=== PATIENT | female | born 1960 | race Caucasian/White ===

== ENCOUNTER 2017-01-27 11:35 | Emergency (ER) | payer OTHER ==
--- NOTE | 2017-01-27 13:38 | ED ---
Back Pain HPI - General Chief Complaint: Back Pain/Injury Stated Complaint: Back Pain Time Seen by Provider: 01/27/17 13:03 Source: patient, RN notes reviewed, old records reviewed Limitations: no limitations - History of Present Illness Initial Comments: Patient is a 56-year-old female with chief complaint of right-sided back spasm for approximately 2 days. She reports she does arm doing anything to it. She states she's never had any imaging studies were back. She reports that the pain is worse with position. She states that she took a tramadol at 2 in the morning but has not taken any other medications. She reports that she has no peripheral paresthesias. She denies any changes in urination or abdominal pain. She denies any chest pain or shortness of breath. Patient states that pain feels like a muscle spasm only over the right side of the thoracic spine. - Related Data Home Medications Medication Instructions Recorded Confirmed ALPRAZolam [Xanax] 0.5 mg PO HS 04/13/14 02/19/15 Atorvastatin [Lipitor] 80 mg PO HS 04/13/14 02/19/15 Clopidogrel [Plavix] 75 mg PO DAILY 04/13/14 02/19/15 Lisinopril [Zestril] 20 mg PO DAILY 04/13/14 02/19/15 Metoprolol Tartrate [Lopressor] 25 mg PO DAILY 04/13/14 02/19/15 Previous Rx's Medication Instructions Recorded Amoxicillin/Potassium Clav 1 each PO Q12HR #20 tab 02/19/15 [Augmentin 875-125 Tablet] Ofloxacin 0.3% Otic Soln [Floxin 5 drops RIGHT EAR BID #10 ml 02/19/15 Ear Drops] Acetaminophen-Codeine 300-30mg 1 tab PO Q6H PRN #15 tablet 01/27/17 [Tylenol #3] Cyclobenzaprine [Flexeril] 10 mg PO TID #30 tab 01/27/17 Allergies Allergy/AdvReac Type Severity Reaction Status Date / Time No Known Allergies Allergy Verified 01/27/17 11:41 Review of Systems ROS Statement: Those systems with pertinent positive or pertinent negative responses have been documented in the HPI. ROS Other: All systems not noted in ROS Statement are negative. Past Medical History Past Medical History: Coronary Artery Disease (CAD), Hyperlipidemia, Hypertension History of Any Multi-Drug Resistant Organisms: None Reported Past Surgical History: Heart Catheterization With Stent, Hysterectomy, Tubal Ligation Past Psychological History: No Psychological Hx Reported Smoking Status: Former smoker Past Alcohol Use History: None Reported Past Drug Use History: None Reported General Exam - General Exam Comments Initial Comments: Well-appearing 56-year-old female. No acute distress. Limitations: no limitations General appearance: alert, in no apparent distress Head exam: Present: atraumatic, normocephalic, normal inspection Eye exam: Present: normal appearance, PERRL, EOMI. Absent: scleral icterus, conjunctival injection, periorbital swelling ENT exam: Present: normal exam, mucous membranes moist Neck exam: Present: normal inspection. Absent: tenderness, meningismus, lymphadenopathy Respiratory exam: Present: normal lung sounds bilaterally. Absent: respiratory distress, wheezes, rales, rhonchi, stridor Cardiovascular Exam: Present: regular rate, normal rhythm, normal heart sounds. Absent: systolic murmur, diastolic murmur, rubs, gallop, clicks GI/Abdominal exam: Present: soft, normal bowel sounds. Absent: distended, tenderness, guarding, rebound, rigid Extremities exam: Present: normal inspection, full ROM, normal capillary refill. Absent: tenderness, pedal edema, joint swelling, calf tenderness Back exam: Present: normal inspection, full ROM, tenderness (Right thoracic spinal tenderness), muscle spasm, paraspinal tenderness (Right thoracic). Absent: vertebral tenderness, rash noted, other Neurological exam: Present: alert, oriented X3, CN II-XII intact Psychiatric exam: Present: normal affect, normal mood Skin exam: Present: warm, dry, intact, normal color Course Vital Signs 01/27/17 01/27/17 11:37 13:59 Temperature 98 F 97.9 F Pulse Rate 53 L 55 L Respiratory 17 18 Rate Blood Pressure 169/81 158/65 O2 Sat by Pulse 95 99 Oximetry Medical Decision Making - Medical Decision Making atfrancine is a 56-year-old female with chief complaint of right-sided back spasm for approximately 2 days. She reports she does arm doing anything to it. She states she's never had any imaging studies were back. She reports that the pain is worse with position. She states that she took a tramadol at 2 in the morning but has not taken any other medications. Patient has evidence of a spasm and tenderness over right thoracic paraspinal muscles. Patient given IM norflex and toradol. PAtient gven Rx for norflex and tylenol 3, I did discuss return parameters and treatment plan. Thoracic spine Xray does show spurring, no spondylolisthesis or spondlylolysis. Patient understands treatment plan and will comply. - Radiology Data Radiology results: report reviewed No fractures present. Multilevel spurring is evident. Disposition Clinical Impression: Spasm of thoracic back muscle Disposition: HOME SELF-CARE Condition: Good Instructions: Muscle Spasm (ED) Additional Instructions: Is advised to continue applying heating pad over the area. Follow-up with primary care provider if symptoms continue persist. Return to emergency department if any alarming signs or symptoms occur. Prescriptions: Acetaminophen-Codeine 300-30mg [Tylenol #3] 1 tab PO Q6H PRN #15 tablet PRN Reason: Pain Cyclobenzaprine [Flexeril] 10 mg PO TID #30 tab Referrals: Andrea Miller DO [Primary Care Provider] - 1-2 days Time of Disposition: 14:03
[2017-01-27] MEDS: KETOROLAC 60 MG/2 ML VIAL IM STA (13:47)
[2017-01-27] MEDS: ORPHENADRINE 30 MG/ML 2 ML VIAL IM STA (13:47)
[2017-01-27 14:00] VITALS: BP 158/65; PULSE 55; RESP 18; TEMP 97.9
--- NOTE | 2017-01-27 14:00 | XR ---
EXAMINATION TYPE: XR thoracic spine 2V DATE OF EXAM: 01/27/2017 1:39 PM CLINICAL HISTORY: Right-sided back pain. TECHNIQUE: Frontal, lateral, and swimmer's view of thoracic spine are obtained. COMPARISON: None. FINDINGS: Thoracic spine show satisfactory alignment without evidence of acute fracture or dislocatio n. Vertebral body heights and disc space heights are preserved. Mild multilevel anterior spurring is present. Visualized ribs are unremarkable. IMPRESSION: No acute fracture or dislocation is seen in the thoracic spine. Mild multilevel spurring noted.
== END 2017-01-27 14:14 | disposition home or self-care (01) ==
LOC: EC 11:35
DX: M62.830 Muscle spasm of back (principal); I25.10 Atherosclerotic heart disease of native coronary artery without angina pectoris; E78.5 Hyperlipidemia, unspecified; I10 Essential (primary) hypertension; Z87.891 Personal history of nicotine dependence; Z79.01 Long term (current) use of anticoagulants; Z79.899 Other long term (current) drug therapy
CPT/HCPCS: 72070; 99284; 96372 ×2; J2360; J1885

== ENCOUNTER → 2017-05-10 | Outpatient (CLI) | payer OTHER ==
--- NOTE | 2017-05-10 14:39 | US ---
EXAMINATION TYPE: US st tissue head/neck DATE OF EXAM: 05/10/2017 COMPARISON: NONE CLINICAL HISTORY: R22.1 Localized swelling, mass and lump, neck. Right shoulder/neck prominence noted x 2 years. US: area surveyed at right shoulder/ lateral neck showed no discreet mass and as compared to left tex ulder/lateral neck area. IMPRESSION: No distinct mass identified at the site of clinical concern.
== END | disposition home or self-care (01) ==
LOC: RADUSWWP 13:34
PROVIDERS: ATTEND Family Medicine
DX: R22.1 Localized swelling, mass and lump, neck (principal)
CPT/HCPCS: 76536

== ENCOUNTER 2017-08-02 08:28 | Day surgery (SDC) | payer OTHER ==
[2017-07-30 12:06] VITALS: BMI 29.2
[~2017-08-02 08:28] MED LIST: LACTATED RINGERS 1,000 ML IV SCH
[2017-08-02 08:46] VITALS: RESP 18; TEMP 98.1
[2017-08-02 08:48] LABS: Glucose,Whole Blood 95 mg/dL (75-99)
[2017-08-02] MEDS ORDERED: LIDOCAINE 1% 20 ML VIAL (10MG/ML) FOR IV START INTRADERMA ONE (08:51)
[2017-08-02] MEDS ORDERED: MIDAZOLAM 2 MG/2 ML VIAL IV ONE (08:52)
[2017-08-02] MEDS ORDERED: LIDOCAINE 1% INJ 10MG/ML (20 ML MDV) ONE (09:12)
[2017-08-02] MEDS ORDERED: PROPOFOL 10 MG/ML 20 ML VIAL IV ONE (09:12)
--- NOTE | 2017-08-02 09:13 | P.GSHP ---
History of Present Illness H&P Date: 08/02/17 Chief Complaint: GI bleed This a 56-year-old female referred from Dr. Andrea Pike. Patient's had issues with rectal bleeding. She presents today for colonoscopy. Past Medical History Past Medical History: Coronary Artery Disease (CAD), Hyperlipidemia, Hypertension, Myocardial Infarction (ID) Additional Past Medical History / Comment(s): incontinent of stools at times, waxy stools, ulcerative colitis, intermittent pain in between shoulder blades, hypoglycemia Last Myocardial Infarction Date:: 2011 History of Any Multi-Drug Resistant Organisms: None Reported Past Surgical History: Heart Catheterization With Stent, Hysterectomy, Tubal Ligation Additional Past Surgical History / Comment(s): heart stent x1 Past Anesthesia/Blood Transfusion Reactions: Previous Problems w/ Anesthesia Additional Past Anesthesia/Blood Transfusion Reaction / Comment(s): states "Dr had a difficult time advancing scope with prior colonoscopy,takes a long time to wake up from anesthesia",pt's mom takes a long time to wake up from anesthesia,no hx blood transfusion Date of Last Stent Placement:: 2011 Past Psychological History: No Psychological Hx Reported Smoking Status: Former smoker Past Alcohol Use History: Occasional Additional Past Alcohol Use History / Comment(s): quit smoking March 2017,smoked for 30 yrs 1ppd Past Drug Use History: None Reported - Past Family History Mother Family Medical History: No Reported History Father Family Medical History: Congestive Heart Failure (CHF) Additional Family Medical History / Comment(s): emphysema Medications and Allergies Home Medications Medication Instructions Recorded Confirmed Type ALPRAZolam [Xanax] 1 mg PO HS 04/13/14 07/30/17 History Atorvastatin [Lipitor] 80 mg PO HS 04/13/14 07/30/17 History Clopidogrel [Plavix] 75 mg PO DAILY 04/13/14 07/30/17 History Lisinopril [Zestril] 40 mg PO QAM 04/13/14 07/30/17 History Metoprolol Tartrate [Lopressor] 25 mg PO BID 04/13/14 07/30/17 History Aspirin EC [Ecotrin Low Dose] 81 mg PO DAILY 07/30/17 07/30/17 History Allergies Allergy/AdvReac Type Severity Reaction Status Date / Time No Known Allergies Allergy Verified 07/30/17 11:50 Surgical - Exam Vital Signs Temp Pulse Resp BP Pulse Ox 98.1 F 64 18 120/80 95 08/02/17 08:45 08/02/17 08:45 08/02/17 08:45 08/02/17 08:45 08/02/17 08:45 - General well developed, well nourished, no distress - Eyes PERRL - ENT normal pinna - Neck no masses - Respiratory normal expansion - Cardiovascular Rhythm: regular - Abdomen Abdomen: soft, non tender Assessment and Plan Plan: GI bleed. We'll perform colonoscopy.
--- NOTE | 2017-08-02 09:28 | P.OP ---
Date of Procedure: 08/02/17 Preoperative Diagnosis: GI bleed Postoperative Diagnosis: Diverticulosis Procedure(s) Performed: Colonoscopy Anesthesia: MAC Surgeon: Abdi Brown Pathology: none sent Condition: stable Disposition: PACU Description of Procedure: The patient's placed on the endoscopy table in the lateral position. She received IV sedation. Digital rectal exam was performed which revealed a few external hemorrhoids. The flexible colonoscope was then placed patient anus passed throughout the entire colon. The ileocecal valve was visualized. Cecum , ascending and transverse colon appeared normal. In the descending and; was mild diverticular changes. Scope was then brought back the rectum and this appeared normal. The scope was withdrawn for patient.
[2017-08-02 09:47] VITALS: BP 111/61; PULSE 64
== END 2017-08-02 10:19 | disposition home or self-care (01) ==
LOC: ORWHC2ENDO 08:28
PROVIDERS: ATTEND Surgery
DX: K62.5 Hemorrhage of anus and rectum (principal); K57.30 Diverticulosis of large intestine without perforation or abscess without bleeding; K64.4 Residual hemorrhoidal skin tags; R15.9 Full incontinence of feces; K51.90 Ulcerative colitis, unspecified, without complications; I25.10 Atherosclerotic heart disease of native coronary artery without angina pectoris; I10 Essential (primary) hypertension; E78.5 Hyperlipidemia, unspecified; I25.2 Old myocardial infarction; Z95.5 Presence of coronary angioplasty implant and graft; Z79.02 Long term (current) use of antithrombotics/antiplatelets; Z79.82 Long term (current) use of aspirin; Z79.899 Other long term (current) drug therapy; Z87.891 Personal history of nicotine dependence; E16.2 Hypoglycemia, unspecified
CPT/HCPCS: 45378; J2250; J2001; J2704

== ENCOUNTER 2017-10-06 07:47 | Day surgery (SDC) | payer OTHER ==
[2017-10-04 08:29] VITALS: BMI 29.2
--- NOTE | 2017-10-05 11:25 | HP ---
HISTORY AND PHYSICAL DATE OF SERVICE: 10/06/2017 Theresa Kimble is a 56-year-old patient seen with progressive left shoulder pain. We discussed treatment options. She elected to proceed with left shoulder arthroscopy. Consent was obtained. Medical clearance was provided by Dr. Andrea Miller. PAST MEDICAL HISTORY: Hypertension, hyperlipidemia, depression. PAST SURGICAL HISTORY: Noncontributory daily. MEDICATIONS: 1. Alprazolam. 2. Atorvastatin. 3. Lisinopril. 4. Metoprolol. ALLERGIES: NORCO. SOCIAL HISTORY: Patient denies current tobacco use. PHYSICAL EXAMINATION: Evaluation left shoulder flexion 30 degrees, abduction is 30 degrees, external rotation is 30 degrees with pain and weakness, tenderness along the anterior lateral acromion and rotator cuff insertion site. Impingement sign is positive at 50 degrees. Drop-arm sign is positive. Distal neurovascular exam is intact. Left shoulder radiographs revealed a type [address] arthrogram of the left shoulder revealed rotator cuff tear and labral tear. IMPRESSION: Left shoulder rotator cuff tear and labral tear. PLAN: Left shoulder arthroscopy, subacromial decompression, probable arthroscopic rotator cuff repair, possible arthroscopic labral repair and debridement. MMODL / IJN: [id number] /
[~2017-10-06 07:47] MED LIST changes: +DEXAMETHASONE SOD PHOSPHATE 10 MG/ML 1 ML VIAL IV ONE; +MIDAZOLAM 2 MG/2 ML VIAL IV PRN; +ONDANSETRON 4 MG/2 ML VIAL IVP ONE; +SCOPOLAMINE 1.5MG/72HR PATCH TRANSDERM ONE; +ceFAZolin IN SWFI 2 GM/20 ML SYRINGE IVP ONE; +fentaNYL (PF) 50 MCG/ML 2 ML AMP IV PRN
[2017-10-06] MEDS ORDERED: LIDOCAINE 1% 20 ML VIAL (10MG/ML) FOR IV START INTRADERMA ONE (08:29)
[2017-10-06] MEDS ORDERED: MIDAZOLAM 2 MG/2 ML VIAL IVP ONE (08:34)
--- NOTE | 2017-10-06 08:56 | P.ONQ ---
Anesthesiology Proc Note - PNB - Peripheral Nerve Block Performed Left Interscalene Indication: Acute Post-Operative Pain, Requested by physician (Dr martins) Sedation Type: Sedate with meaningful contact maintained Preparation: Sterile Prep Position: Supine Catheter: None Needle Types: Other (see comment) (Raquel) Needle Size: 50mm (2") Needle Gauge: 20 Technique: Ultrasound Injectate: 0.5% Ropivacaine (see comment for volume) (14cc Ropivacaine 0.5%, 14cc Lidocaine 2% with 1:100,00 epi) Blood Aspirated: No Pain Paresthesia on Injection Noted: No Resistance on Injection: Normal Events: Uneventful and Well Tolerated
[2017-10-06] MEDS ORDERED: ROPIVACAINE 5 MG/ML 30 ML VIAL ONE (09:52)
[2017-10-06] MEDS ORDERED: ePHEDrine SULFATE/0.9% NACL/PF 50 MG/5 ML SYRINGE IV ONE (09:52)
[2017-10-06] MEDS ORDERED: PROPOFOL 10 MG/ML 20 ML VIAL IV ONE (09:52)
[2017-10-06] MEDS ORDERED: LIDOCAINE 1% INJ 10MG/ML (20 ML MDV) ONE (09:52)
[2017-10-06] MEDS ORDERED: SUCCINYLCHOLINE CHLORIDE 100 MG/5 ML SYR IV ONE (09:52)
[2017-10-06] MEDS ORDERED: MIDAZOLAM 2 MG/2 ML VIAL ONE (09:52)
[2017-10-06] MEDS ORDERED: LIDOCAINE 2%-EPI 1:100,000 20 ML VIAL ONE (09:52)
[2017-10-06] MEDS ORDERED: fentaNYL (PF) 50 MCG/ML 2 ML AMP ONE (09:52)
[2017-10-06] MEDS ORDERED: LACTATED RINGERS 1,000 ML IV ONE (10:50)
--- NOTE | 2017-10-06 11:43 | P.OP ---
Date of Procedure: 10/06/17 Preoperative Diagnosis: Left shoulder impingement Postoperative Diagnosis: 1. Left shoulder rotator cuff tear 2. Left shoulder impingement 3. Left shoulder partial biceps tendon tear 4. Left shoulder superficial labral tear Procedure(s) Performed: 1. Left shoulder arthroscopic rotator cuff repair 2. Left shoulder arthroscopic subacromial decompression 3. Left shoulder arthroscopic biceps tenotomy 4. Left shoulder arthroscopic debridement labral tear Implants: 2-4.5 peek anchors 2-5.5 peek anchors Anesthesia: GETA, regional (Interscalene block) Surgeon: Jim Mcleod Spinning Lathe Operator Automatic #1: Hitesh Fernandes Estimated Blood Loss (ml): 15 Pathology: none sent Condition: stable Disposition: PACU Indications for Procedure: 56-year-old patient seen with left shoulder pain. After we discussed treatment options, she elected to proceed with arthroscopy. Operative Findings: See description of procedure Description of Procedure: Patient underwent a shoulder block by department of anesthesia. The patient was then taken to the operative suite. The patient underwent a general anesthetic by the department of anesthesia. The patient was placed into a lateral position and secured. There was appropriate padding of the bony prominence. Left shoulder was then prepped and draped in normal sterile orthopedic fashion. We placed the extremity in 10 pounds of longitudinal traction. A posterior incision was now made for a posterior working portal site. The trocar and cannula were inserted into the glenohumeral joint. Arthroscopy was initiated. Spinal needle was now inserted anteriorly, to ascertain the anterior working portal site. An incision was now made in that area, a trocar was inserted followed by a probe. Partial long head biceps tendon tear was present at the hiatus. There was some superficial tearing of the superior labrum. There were grade 1/2 chondral moist changes of the central portion of the glenoid with no osteochondral tears. The remaining labrum was stable. I performed an arthroscopic biceps tenotomy. I debrided the superficial labral tear down to stable tissue. The residual labrum was stable. Instruments removed from glenohumeral joint. Utilizing the posterior working portal site, the trocar and cannula were inserted into the subacromial space. Arthroscopy initiated. I made an incision 2 fingerbreadths lateral to the acromion. I introduced my trocar followed by my ArthroCare ablator. I now began ablating thick subacromial bursal tissue, which exposed the undersurface of the anterior acromion. This was diminished subacromial space. There was a very prominent anterior acromion. A motorized bur was introduced and a subacromial decompression was performed. I also excised some osteophytes off the inferior aspect of the distal clavicle. The AC joint was visualized and noted to be moderately arthritic, not enough toward a Gilbert procedure. I turned my attention to the rotator cuff. There was a 2.5 cm tear along the distal supraspinatus. This was freely mobile over the footprint. I debrided the margins down to stable tissue. I abraded the footprint with a motorized bur. An acetylene burner portal site was created off the lateral aspect of the acromion. I introduced 2 medial row anchors with 2 sutures each. I passed all 8 limbs of suture through good bites of rotator cuff tendon. I crisscrossed the sutures and introduced 2 lateral anchors compressing the tendon along the footprint nicely. The residual suture limbs were clipped. The repair was probed and found to be stable. Instruments now removed from the portal sites. All portal sites were approximated with nylon suture. Sterile dressings were applied followed by a shoulder immobilizer. Yann ROSARIO assisted with the procedure. The patient was awakened, transferred to a bed, and taken to recovery in stable condition.
[2017-10-06 11:53] VITALS: TEMP 97
[2017-10-06] MEDS ORDERED: ONDANSETRON 4 MG/2 ML VIAL IVP ONE (12:15)
[2017-10-06] MEDS ORDERED: LABETALOL SYRINGE 5 MG/ML IVP ONE (12:21)
[2017-10-06 12:23] VITALS: RESP 16
[2017-10-06] MEDS ORDERED: Acetaminophen-Codeine 300-30mg TAB PO ONE (12:48)
[2017-10-06 13:15] VITALS: BP 143/74; PULSE 82
== END 2017-10-06 13:50 | disposition home or self-care (01) ==
LOC: OR 07:47
PROVIDERS: ATTEND Orthopaedic Surgery
DX: M75.102 Unspecified rotator cuff tear or rupture of left shoulder, not specified as traumatic (principal); S46.112A Strain of muscle, fascia and tendon of long head of biceps, left arm, initial encounter; S43.492A Other sprain of left shoulder joint, initial encounter; X58.XXXA Exposure to other specified factors, initial encounter; M25.712 Osteophyte, left shoulder; M75.42 Impingement syndrome of left shoulder; I10 Essential (primary) hypertension; F41.9 Anxiety disorder, unspecified; I25.10 Atherosclerotic heart disease of native coronary artery without angina pectoris; D64.9 Anemia, unspecified; E78.5 Hyperlipidemia, unspecified; F32.9 Major depressive disorder, single episode, unspecified; I25.2 Old myocardial infarction; Z79.899 Other long term (current) drug therapy; Z79.891 Long term (current) use of opiate analgesic; Z79.82 Long term (current) use of aspirin; Z79.02 Long term (current) use of antithrombotics/antiplatelets; Z98.51 Tubal ligation status; Z88.5 Allergy status to narcotic agent
CPT/HCPCS: 29827; 29826; J2250; J1100; J0690; J2405; 64415

== ENCOUNTER → 2020-10-15 | Outpatient (CLI) | payer OTHER ==
--- NOTE | 2020-10-15 10:05 | MR ---
MR brain without contrast HISTORY: H 53.6, blurred vision and ataxia, recurrent falls Multiplanar multisequence imaging through the brain Comparison cervical MRI 02/11/2016 There is no restricted diffusion. There is no hemorrhage or hydrocephalus. There are normal vascular flow voids. There is abnormal increased signal on T1 and T2-weighted sequences at the petrous apex on the right. Cerebellopontine angles, corpus callosum, pituitary, cervical medullary junction are norm al. Clivus shows a stable appearance. There is no hemorrhage or hydrocephalus. Orbits show symmetric appearance. Brain signal is remarkable for some scattered hyperintensities on inversion recovery T2-w eighted sequences, approximately 3-5 lesions, axial image 20 within the deep white matter of question able clinical significance. There is some atrophy noted the anterior aspect of the right frontal lobe inferiorly. IMPRESSION: Petrous apex shows abnormal signal, consider cholesterol granuloma. Nonspecific white mat ter abnormalities of questionable clinical significance. Some focal encephalomalacia of the right fro ntal lobe inferiorly, correlate for prior history of trauma, frontal contusion.
== END | disposition home or self-care (01) ==
LOC: RADMRIMAIN 08:43
PROVIDERS: ATTEND Psychiatry & Neurology Neurology
DX: G93.89 Other specified disorders of brain (principal); R90.82 White matter disease, unspecified; R93.0 Abnormal findings on diagnostic imaging of skull and head, not elsewhere classified; R27.0 Ataxia, unspecified; R29.6 Repeated falls
CPT/HCPCS: 70551

== ENCOUNTER → 2020-10-21 | Outpatient (CLI) | payer OTHER ==
--- NOTE | 2020-10-21 14:03 | US ---
EXAMINATION TYPE: US carotid duplex BILAT DATE OF EXAM: 10/21/2020 COMPARISON: NONE CLINICAL HISTORY: H53.8 Blurred vision bilateral...... Blurred vision, double vision EXAM MEASUREMENTS: RIGHT: Peak Systolic Velocity (PSV) cm/sec ----- Right CCA: 87.7 ----- Right ICA: 77.7 ----- Right ECA: 62.1 ICA/CCA ratio: 0.9 RIGHT: End Diastole cm/sec ----- Right CCA: 30.3 ----- Right ICA: 34.9 ----- Right ECA: 14.3 LEFT: Peak Systolic Velocity (PSV) cm/sec ----- Left CCA: 76.6 ----- Left ICA: 81.5 ----- Left ECA: 47.9 ICA/CCA ratio: 1.1 LEFT: End Diastole cm/sec ----- Left CCA: 26.4 ----- Left ICA: 34.8 ----- Left ECA: 12.1 VERTEBRALS (direction of flow): Right Vertebral: Antegrade Left Vertebral: Antegrade Rhythm: Normal No significant stenosis mild atherosclerotic plaque. IMPRESSION: 1. No significant hemodynamic stenosis as visualized. Criteria for Assigning % of Stenosis / Diameter reduction (Estimation based on the indirect measurements of the internal carotid artery velocities (ICA PSV). 1. Normal (no stenosis)=ICA PSV < 125 cm/s: ratio < 2.0: ICA EDV<40 cm/s. 2. Less than 50% stenosis=ICA PSV < 125 cm/s: ratio < 2.0: ICA EDV<40 cm/s. 3. 50 to 69% stenosis=ICA PSV of 125 to 230 cm/s: ration 2.0 ? 4.0: ICA EDV 40-100 cm/s. 4. Greater than 70% stenosis to near occlusion= ICA PSV > 230 cm/s: ratio > 4.0: ICA EDV > 100 cm/s. 5. Near occlusion= ICA PSV velocities may be low or undetectable: variable ratio and ICA EDV. 6. Total occlusion=unable to detect flow.
--- NOTE | 2020-10-22 13:40 | ECHOF ---
Referral Reason:H53.8 Blurred vision bilateral..... MEASUREMENTS -------- HEIGHT: 162.6 cm WEIGHT: 59.0 kg BP: RVIDd: 3.2 cm (< 3.3) IVSd: 0.8 cm (0.6 - 1.1) LVIDd: 4.2 cm (3.9 - 5.3) LVPWd: 1.0 cm (0.6 - 1.1) IVSs: 1.3 cm LVIDs: 3.5 cm LVPWs: 1.0 cm LA Diam: 3.4 cm (2.7 - 3.8) LAESV Index (A-L): 23.18 ml/m Ao Diam: 2.6 cm (2.0 - 3.7) AV Cusp: 1.7 cm (1.5 - 2.6) MV EXCURSION: 16.659 mm (> 18.000) MV EF SLOPE: 138 mm/s (70 - 150) EPSS: 0.6 cm MV E Ramo: 0.55 m/s MV DecT: 147 ms MV A Ramo: 0.72 m/s MV E/A Ratio: 0.77 RAP: 5.00 mmHg RVSP: 16.70 mmHg FINDINGS -------- Sinus rhythm. This was a technically good study. LV size, wall thickness and systolic function are normal, with an EF greater than 55%. The left rosario tricular size is normal. The right ventricle is normal in size. The left atrial size is normal. The right atrial size is normal. The aortic valve is trileaflet, and appears structurally normal. No aortic stenosis or regurgitation. Mild mitral regurgitation is present. Mild tricuspid regurgitation present. Right ventricular systolic pressure is normal at < 35 mmHg. There is no pulmonic regurgitation present. The aortic root size is normal. There is no pericardial effusion. CONCLUSIONS -------- 1. LV size, wall thickness and systolic function are normal, with an EF greater than 55%. 2. The left ventricular size is normal. 3. The right ventricle is normal in size. 4. The left atrial size is normal. 5. The right atrial size is normal. 6. Mild mitral regurgitation is present. 7. Mild tricuspid regurgitation present. 8. There is no pulmonic regurgitation present. 9. The aortic root size is normal. 10. There is no pericardial effusion. ROLLER COASTER ENGINEER: Hillary Douglas RDCS
== END | disposition home or self-care (01) ==
LOC: RADECHMAIN 12:06
PROVIDERS: ATTEND Psychiatry & Neurology Neurology
DX: I08.1 Rheumatic disorders of both mitral and tricuspid valves (principal); H53.8 Other visual disturbances; R27.0 Ataxia, unspecified
CPT/HCPCS: 93306; 93880

== ENCOUNTER → 2020-11-18 | Outpatient (CLI) | payer OTHER ==
--- NOTE | 2020-11-18 10:05 | MR ---
EXAMINATION TYPE: MR lumbar spine wo con DATE OF EXAM: 11/18/2020 COMPARISON: NONE HISTORY: Back pain, left side weakness TECHNIQUE: T1 and T2 axial and sagittal images of the lumbar spine are submitted. FINDINGS: There is no abnormal signal seen within the visualized spinal cord or paraspinal soft tissu es. There is loss of disc signal and space at all levels with severe changes extending L1-S1. Multile magda discogenic marrow changes are seen. Heterogeneous marrow signal is nonspecific. On the sagittal images there is a sagittal disc bulge T11-T12 which is not included the axial images. T12-L1 there is a right-sided nerve root sleeve diverticulum. No disc herniation or canal stenosis. M ild hypertrophic change of the facets. At L1-2 there is broad-based central disc herniation with moderate effacement of thecal sac and centr al stenosis. Hypertrophic change of the facets and ligamentum flavum contribute. There is mild bilate ral foraminal encroachment. At L2-3 there is severe degenerative disc disease with broad-based disc bulging. Hypertrophic change of the facets and ligamentum flavum contribute to borderline to mild canal stenosis and mild bilatera l foraminal encroachment. At L3-4 there is severe degenerative disc disease with disc bulging and broad-based. Hypertrophic compa nge of the facets and ligamentum flavum contribute to mild canal stenosis and bilateral foraminal enc roachment greater on the right. A greater right lateral disc bulging is seen. At L4-5 there is a slight anterolisthesis likely degenerative with advanced facet arthropathy. Hypert rophy ligamentum flavum and central disc bulging contribute to mild to moderate canal stenosis and mi ld bilateral foraminal encroachment. At L5-S1 there is severe degenerative disc disease with advanced facet arthropathy. Spurring and disc bulging greater laterally to left with moderate left foraminal encroachment. Right neural foramina i s patent. IMPRESSION: 1. Severe degenerative disc disease at all levels with multilevel disc bulging as discussed above res ulting in multilevel canal stenosis and foraminal encroachment. 2. Sagittal disc bulging T11-T12 which is not included on the axial images of the lumbar spine
== END | disposition home or self-care (01) ==
LOC: RADMRIMAIN 08:53
PROVIDERS: ATTEND Psychiatry & Neurology Neurology
DX: M48.061 Spinal stenosis, lumbar region without neurogenic claudication (principal); M51.26 Other intervertebral disc displacement, lumbar region; M51.27 Other intervertebral disc displacement, lumbosacral region; M51.36 Other intervertebral disc degeneration, lumbar region; M51.37 Other intervertebral disc degeneration, lumbosacral region
CPT/HCPCS: 72148

== ENCOUNTER → 2021-04-15 | Outpatient (CLI) | payer OTHER ==
[2021-04-15 21:39] LABS: HGB 12.1 g/dL (12.0-15.0); MCHC 31.8 g/dL (32.0-37.0); MCV 94.3 fL (80.0-97.0); Mean Platelet Volume 11.9 fL (9.5-12.2); Platelet Count 221 X 10*3/uL (140-440); RBC 4.03 X 10*6/uL (4.10-5.20); RDW 13.4 % (11.5-14.5); WBC 7.43 X 10*3/uL (4.50-10.00)
[2021-04-15 22:13] LABS: African American GFR (CKD) 70.4 (60.0-200.0); Albumin 4.4 g/dL (3.80-4.90); Albumin/Globulin Ratio 2.1 (1.60-3.17); Anion Gap 9.6 mmol/L (4.00-12.00); Calcium 9.4 mg/dL (8.7-10.3); Carbon Dioxide 26.4 mmol/L (21.6-31.8); Globulin 2.1 g/dL (1.6-3.3); Non-African American GFR(CKD) 60.8 (60.0-200.0); Potassium 4.2 mmol/L (3.5-5.5); Total Bilirubin 0.2 mg/dL (0.3-1.2); Total Protein 6.5 g/dL (6.2-8.2)
[2021-04-15 22:29] LABS: Folate, Serum 10.9 ng/mL; T4, Free (Free Thyroxine) 0.8 ng/dL (0.80-1.80)
== END | disposition home or self-care (01) ==
LOC: LABWHC1 14:17
PROVIDERS: ATTEND Psychiatry & Neurology Pain Medicine
DX: R41.3 Other amnesia (principal)
CPT/HCPCS: 36415; 80053; 82306; 82607; 82746; 83090; 84439; 84443; 84481; 85027

== ENCOUNTER → 2022-04-15 | Outpatient (CLI) | payer OTHER ==
--- NOTE | 2022-04-16 08:27 | MM ---
Reason for Exam: Screening (asymptomatic). Last mammogram was performed 10 year(s) and 4 month(s) ago. Patient History: Menarche at age 12. First Full-Term at age 23. Left ovary removed at age 43. Right ovary removed at age 43. Hysterectomy at age 43. Postmenopausal. Estrogen for 3 years, 7 months, from age 44 until age 47. 2003, Benign Excisional Biopsy on the right side. Paternal cousin had breast cancer, age 30. Paternal cousin had breast cancer. Risk Values: Jasmyne 5 year model risk: 1.6%. NCI Lifetime model risk: 7.3%. Prior Study Comparison: 12/06/2007 Bilateral Screening Mammogram, [facility]. 12/15/2007 Left Diagnostic Mammogram, [facility]. 12/21/2011 Bilateral Screening Mammogram, [facility]. Tissue Density: There are scattered fibroglandular densities. Findings: Analyzed By CAD. Stable chronic nodularity upper outer aspect left breast. Increased fatty replacement since prior study. Benign-appearing bilateral axillary lymph nodes current study. A few regional benign appearing round calcifications in the anterior aspect both breasts. There is no suspicious group of microcalcifications or new suspicious mass in either breast. Overall Assessment: Benign, BI-RAD 2 Management: Screening Mammogram of both breasts in 1 year. A clinical breast exam by your physician is recommended on an annual basis and results should be correlated with mammographic findings. Electronically signed and approved by: Alon Wilcox M.D.
== END | disposition home or self-care (01) ==
LOC: RADMAMWWP 10:26
PROVIDERS: ATTEND Internal Medicine
DX: Z12.31 Encounter for screening mammogram for malignant neoplasm of breast (principal); Z78.0 Asymptomatic menopausal state; Z80.3 Family history of malignant neoplasm of breast; Z90.721 Acquired absence of ovaries, unilateral
CPT/HCPCS: 77063; 77067

== ENCOUNTER 2023-11-19 07:49 | Observation (INO) | payer MEDICARE, OTHER ==
--- NOTE | 2023-11-19 07:53 | ED ---
General Adult HPI - General Stated complaint: Chest Pain Time Seen by Provider: 11/19/23 07:50 Source: patient, EMS, RN notes reviewed, old records reviewed - History of Present Illness Initial comments: 63 female presents for evaluation of chest pain. Patient's symptoms began in the middle the night several hours prior to arrival with central chest pain. She did state that she had pain in the middle of her back as well. She has history of CAD, history of hypertension. Patient reports associated vomiting. Her symptoms are improved at the time my evaluation. She was transported by paramedics, given an aspirin in route. - Related Data Home Medications Medication Instructions Recorded Confirmed Clopidogrel [Plavix] 75 mg PO DAILY 04/13/14 11/19/23 Metoprolol Tartrate [Lopressor] 25 mg PO TID 04/13/14 11/19/23 ALPRAZolam [Xanax] 1 mg PO BID 11/19/23 11/19/23 Cyclobenzaprine [Flexeril] 5 mg PO BID 11/19/23 11/19/23 Fluticasone Propionate 1 spray EA NOSTRIL DAILY 11/19/23 11/19/23 Rosuvastatin Calcium 5 mg PO DAILY 11/19/23 11/19/23 Ubrogepant [Ubrelvy] 100 mg PO BID PRN 11/19/23 11/19/23 amLODIPine [Norvasc] 5 mg PO DAILY 11/19/23 11/19/23 lisinopriL [Zestril] 10 mg PO DAILY 11/19/23 11/19/23 Allergies Allergy/AdvReac Type Severity Reaction Status Date / Time hydrocodone [From Lucas] AdvReac Severe Nausea & Verified 11/19/23 10:44 Vomiting Review of Systems ROS Statement: Those systems with pertinent positive or pertinent negative responses have been documented in the HPI. ROS Other: All systems not noted in ROS Statement are negative. Past Medical History Past Medical History: Coronary Artery Disease (CAD), Hyperlipidemia, Hypertension, Myocardial Infarction ([place]) Additional Past Medical History / Comment(s): incontinent of stools at times,waxy stools, ulcerative colitis, intermittent pain in between shoulder blades,hypoglycemia Last Myocardial Infarction Date:: 2011 History of Any Multi-Drug Resistant Organisms: None Reported Past Surgical History: Heart Catheterization With Stent, Hysterectomy, Tubal Ligation Additional Past Surgical History / Comment(s): heart stent x1 Past Anesthesia/Blood Transfusion Reactions: Previous Problems w/ Anesthesia Additional Past Anesthesia/Blood Transfusion Reaction / Comment(s): states "Dr had a difficult time advancing scope with prior colonoscopy,takes a long time to wake up from anesthesia",pt's mom takes a long time to wake up from anesthesia,no hx blood transfusion Date of Last Stent Placement:: 2011 Past Psychological History: No Psychological Hx Reported - Past Family History Mother Family Medical History: No Reported History Father Family Medical History: Congestive Heart Failure (CHF) Additional Family Medical History / Comment(s): emphysema General Exam General appearance: alert, in no apparent distress Head exam: Present: atraumatic, normocephalic Eye exam: Present: normal appearance, PERRL ENT exam: Present: normal exam Neck exam: Present: normal inspection. Absent: tenderness, meningismus Respiratory exam: Present: normal lung sounds bilaterally. Absent: respiratory distress, wheezes Cardiovascular Exam: Present: regular rate, normal rhythm GI/Abdominal exam: Present: soft. Absent: distended, tenderness Extremities exam: Present: other (Symmetric radial pulses) Neurological exam: Present: alert, oriented X3, CN II-XII intact. Absent: motor sensory deficit Psychiatric exam: Present: normal affect, normal mood Skin exam: Present: warm, dry, intact. Absent: cyanosis, diaphoretic Course Vital Signs 11/19/23 11/19/23 11/19/23 08:00 08:15 09:29 Temperature 97.7 F 97.9 F Pulse Rate 89 66 Pulse Rate [ 84 [employer] Airspace Control Officer ] Respiratory 18 17 Rate Blood Pressure 165/93 162/106 O2 Sat by Pulse 97 96 Oximetry 11/19/23 11/19/23 10:05 11:09 Temperature Pulse Rate 69 64 Pulse Rate [ [employer] Airspace Control Officer ] Respiratory 17 16 Rate Blood Pressure 165/97 152/101 O2 Sat by Pulse 97 96 Oximetry Medical Decision Making - Medical Decision Making Was pt. sent in by a medical professional or institution (, MARLENE, DIRECTOR HOSPICE OPERATIONS, urgent care, hospital, or assisted...) When possible be specific @ -No Did you speak to anyone other than the patient for history (EMS, parent, family, police, friend...)? What history was obtained from this source @ -No Did you review nursing and triage notes (agree or disagree)? Why? @ -I reviewed and agree with nursing and triage notes Were old charts reviewed (outside hosp., previous admission, EMS record, old EKG, old radiological studies, urgent care reports/EKG's, assisted records)? Report findings @ -No old charts were reviewed Differential Diagnosis (chest pain, altered mental status, abdominal pain women, abdominal pain men, vaginal bleeding, weakness, fever, dyspnea, syncope, headac he, dizziness, GI bleed, back pain, seizure, CVA, palpatations, mental health, musculoskeletal)? @ -Differential Chest Pain: Stable Angina, Unstable Angina, STEMI, NSTEMI Aortic Dissection, Pneumothorax, Musculoskeletal, Esophageal Spasm GERD, Cholecystitis, Pancreatitis, Zoster, this is not meant to be an all-inclusive list. EKG interpreted by me (3pts min.). @ Sinus rhythm rate of 91, [place] interval 162, QRS duration 94, QTC [address] segment elevation. X-rays interpreted by me (1pt min.). @ -Chest x-ray negative for acute cardiopulmonary CT interpreted by me (1pt min.). @ CT angiography negative for aortic pathology, no acute findings. Does show esophagitis. U/S interpreted by me (1pt. min.). @ -None done What testing was considered but not performed or refused? (CT, X-rays, U/S, labs)? Why? @ -None What meds were considered but not given or refused? Why? @ -None Did you discuss the management of the patient with other professionals (professionals i.e. , PA, DIRECTOR HOSPICE OPERATIONS, lab, RT, psych nurse, hospital social worker, crown and bridge dental lab technician, teacher, event security officer, wrapper caser)? Give summary @ -No Was smoking cessation discussed for >3mins.? @ -No Was critical care preformed (if so, how long)? @ -No Were there social determinants of health that impacted care today? How? (Homelessness, low income, unemployed, alcoholism, drug addiction, transportation, low edu. Level, literacy, decrease access to med. care, long-term, rehab)? @ -No Was there de-escalation of care discussed even if they declined (Discuss DNR or withdrawal of care, Hospice)? DNR status @ -No What co-morbidities impacted this encounter? (DM, HTN, Smoking, COPD, CAD, Can cer, CVA, ARF, Chemo, Hep., AIDS, mental health diagnosis, sleep apnea, morbid obesity)? @ -[Hypertension. Was patient admitted / discharged? Hospital course, mention meds given and route, prescriptions, significant lab abnormalities, going to OR and other perti nent info. @ -[63-year-old female presenting with chest pain, central chest pain and mid back pain. Patient has history of hypertension states that her blood pressure has been quite elevated. EKG is sinus without ST segment elevation per chest x- ray is clear. I did obtain CT angiography to rule out aortic pathology. This was negative. She has normal CBC, normal CMP, negative initial troponin. She will be observed for serial cardiac enzymes, telemetry, cardiology consultation. Case discussed with Dr. JAFFE who will admit Undiagnosed new problem with uncertain prognosis? @ -No Drug Therapy requiring intensive monitoring for toxicity (Heparin, Nitro, Insulin, Cardizem)? @ -No Were any procedures done? @ -No Diagnosis/symptom? @ -cp Acute, or Chronic, or Acute on Chronic? @ -ACUTE Uncomplicated (without systemic symptoms) or Complicated (systemic symptoms)? @ -COMPLICATED Side effects of treatment? @ -No Exacerbation, Progression, or Severe Exacerbation? @ -No Poses a threat to life or bodily function? How? (Chest pain, [place], [place], pneumonia, PE, COPD, DKA, ARF, appy, cholecystitis, CVA, Diverticulitis, Homicidal, Suicidal, threat to staff... and all critical care pts) @ -YES, cad - Lab Data Result diagrams: 11/19/23 08:10 11/19/23 08:10 Lab Results 11/19/23 11/19/23 11/19/23 Range/Units 08:10 08:10 08:10 WBC 9.1 (3.8-10.6) k/uL RBC 4.13 (3.80-5.40) m/uL Hgb 12.3 (11.4-16.0) gm/dL Hct 37.9 (34.0-46.0) % MCV 91.8 (80.0-100.0) fL MCH 29.8 (25.0-35.0) pg MCHC 32.5 (31.0-37.0) g/dL RDW 13.7 (11.5-15.5) % Plt Count 193 (150-450) k/uL MPV 9.0 Neutrophils % 63 % Lymphocytes % 27 % Monocytes % 6 % Eosinophils % 1 % Basophils % 1 % Neutrophils # 5.7 (1.3-7.7) k/uL Lymphocytes # 2.5 (1.0-4.8) k/uL Monocytes # 0.5 (0-1.0) k/uL Eosinophils # 0.1 (0-0.7) k/uL Basophils # 0.1 (0-0.2) k/uL PT 9.5 L (10.0-12.5) sec INR 0.8 (<1.2) APTT 21.3 L (22.0-30.0) sec Sodium 142 (137-145) mmol/L Potassium 3.7 (3.5-5.1) mmol/L Chloride 108 H (98-107) mmol/L Carbon Dioxide 23 (22-30) mmol/L Anion Gap 11 mmol/L BUN 21 H (7-17) mg/dL Creatinine 0.59 (0.52-1.04) mg/dL Est GFR (CKD-EPI)AfAm >90 (>60 ml/min/1.73 sqM) Est GFR (CKD-EPI)NonAf >90 (>60 ml/min/1.73 sqM) Glucose 127 H (74-99) mg/dL Calcium 8.8 (8.4-10.2) mg/dL Magnesium 1.6 (1.6-2.3) mg/dL Total Bilirubin 0.3 (0.2-1.3) mg/dL AST 36 (14-36) U/L ALT 80 H (4-34) U/L Alkaline Phosphatase 100 (38-126) U/L Troponin I (0.000-0.034) ng/mL Total Protein 6.4 (6.3-8.2) g/dL Albumin 3.8 (3.5-5.0) g/dL Lipase 108 (23-300) U/L 11/19/23 Range/Units 08:10 WBC (3.8-10.6) k/uL RBC (3.80-5.40) m/uL Hgb (11.4-16.0) gm/dL Hct (34.0-46.0) % MCV (80.0-100.0) fL MCH (25.0-35.0) pg MCHC (31.0-37.0) g/dL RDW (11.5-15.5) % Plt Count (150-450) k/uL MPV Neutrophils % % Lymphocytes % % Monocytes % % Eosinophils % % Basophils % % Neutrophils # (1.3-7.7) k/uL Lymphocytes # (1.0-4.8) k/uL Monocytes # (0-1.0) k/uL Eosinophils # (0-0.7) k/uL Basophils # (0-0.2) k/uL PT (10.0-12.5) sec INR (<1.2) APTT (22.0-30.0) sec Sodium (137-145) mmol/L Potassium (3.5-5.1) mmol/L Chloride (98-107) mmol/L Carbon Dioxide (22-30) mmol/L Anion Gap mmol/L BUN (7-17) mg/dL Creatinine (0.52-1.04) mg/dL Est GFR (CKD-EPI)AfAm (>60 ml/min/1.73 sqM) Est GFR (CKD-EPI)NonAf (>60 ml/min/1.73 sqM) Glucose (74-99) mg/dL Calcium (8.4-10.2) mg/dL Magnesium (1.6-2.3) mg/dL Total Bilirubin (0.2-1.3) mg/dL AST (14-36) U/L ALT (4-34) U/L Alkaline Phosphatase (38-126) U/L Troponin I <0.012 (0.000-0.034) ng/mL Total Protein (6.3-8.2) g/dL Albumin (3.5-5.0) g/dL Lipase (23-300) U/L Disposition Clinical Impression: Chest pain Disposition: ADMITTED IP TO THIS HOSP Condition: Stable Is patient prescribed a controlled substance at d/c from ED?: No Referrals: Chapito Jaffe MD [Primary Care Provider] - 1-2 days Time of Disposition: 11:59
[2023-11-19] MEDS ORDERED: HYDROmorphone 1 MG/ML 1 ML SYRINGE IVP STA (08:13)
[2023-11-19] MEDS ORDERED: ONDANSETRON 4 MG/2 ML VIAL IVP STA (08:18)
[2023-11-19 08:24] LABS: Basophils # (A) 0.1 k/uL (0-0.2); Basophils % (A) 1 %; Eosinophils # (A) 0.1 k/uL (0-0.7); Eosinophils % (A) 1 %; HCT 37.9 % (34.0-46.0); HGB 12.3 gm/dL (11.4-16.0); Lymphocytes # (A) 2.5 k/uL (1.0-4.8); Lymphocytes % (A) 27 %; MCH 29.8 pg (25.0-35.0); MCHC 32.5 g/dL (31.0-37.0); MCV 91.8 fL (80.0-100.0); Monocytes # (A) 0.5 k/uL (0-1.0); Monocytes % (A) 6 %; Neutrophils # (A) 5.7 k/uL (1.3-7.7); Neutrophils % (A) 63 %; Platelet Count 193 k/uL (150-450); RBC 4.13 m/uL (3.80-5.40); RDW 13.7 % (11.5-15.5); WBC 9.1 k/uL (3.8-10.6)
[2023-11-19 08:36] LABS: ALT 80 U/L (4-34); AST 36 U/L (14-36); African American GFR (CKD) >90 (>60 ml/min/1.73 sqM); Albumin 3.8 g/dL (3.5-5.0); Alkaline Phosphatase 100 U/L (38-126); Anion Gap 11 mmol/L; Blood Urea Nitrogen 21 mg/dL (7-17); Calcium 8.8 mg/dL (8.4-10.2); Carbon Dioxide 23 mmol/L (22-30); Chloride 108 mmol/L (98-107); Glucose 127 mg/dL (74-99); Lipase 108 U/L (23-300); Magnesium 1.6 mg/dL (1.6-2.3); Non-African American GFR(CKD) >90 (>60 ml/min/1.73 sqM); Potassium 3.7 mmol/L (3.5-5.1); Sodium 142 mmol/L (137-145); Total Bilirubin 0.3 mg/dL (0.2-1.3); Total Protein 6.4 g/dL (6.3-8.2)
[2023-11-19 08:40] LABS: INR 0.8 (<1.2); Prothrombin Time 9.5 sec (10.0-12.5)
[2023-11-19 08:59] LABS: Partial Thromboplastin Time 21.3 sec (22.0-30.0)
--- NOTE | 2023-11-19 09:01 | XR ---
EXAMINATION TYPE: XR chest 1V portable DATE OF EXAM: 11/19/2023 8:38 AM CLINICAL INDICATION:Female, 63 years old with history of chest pain; COMPARISON: Chest radiographs from 04/13/2014 TECHNIQUE: XR chest 1V portable Frontal view of the chest. FINDINGS: Lungs/Pleura: There is flattening of the diaphragm with increased lucency of the lungs. No evidence o f pneumothorax, pleural effusion or focal consolidation. Pulmonary vascularity: Unremarkable. Heart/mediastinum: Cardiomediastinal silhouette is unremarkable. Musculoskeletal: No acute osseous pathology. Other findings: None IMPRESSION: 1. No acute cardiopulmonary disease process. 2. COPD changes.
[2023-11-19 09:31] VITALS: TEMP 97.9
--- NOTE | 2023-11-19 11:03 | CT ---
EXAMINATION TYPE: CT angio thor/abd pel aorta DATE OF EXAM: 11/19/2023 COMPARISON: None. HISTORY: Chest pain, Back pain, HTN CT DLP: 874.9 mGycm. Automated Exposure Control for Dose Reduction was Utilized. CONTRAST: CTA scan of the thorax, abdomen and pelvis is performed without and with IV Contrast, patient injecte d with 100 ml mL of Isovue 370. Reconstructed images workstation and reviewed FINDINGS: VASCULAR: No suspicious hyperdense material to suggest intramural hematoma on noncontrast images. The re is left-sided arch with aberrant brachiocephalic artery running posterior to the esophagus, normal variant. No significant stenosis in the arch or great vessels. Patent celiac artery and SMA along wi th CAREY and single left renal artery. There are 2 right renal arteries. Patent iliac and femoral vesse ls. No significant plaque or stenosis. No linear hypodensity to suggest dissection. No AAA. LUNGS: There is a 5 mm posterior right midlung nodule axial image 51. Consider follow-up CT in one ye ar time to reassess. There is mild bilateral lower lung linear scarring. There is no pleural effusi on or pneumothorax seen. The tracheobronchial tree is patent. MEDIASTINUM: There are no greater than 1 cm hilar or mediastinal lymph nodes. No cardiomegaly or pe ricardial effusion is seen. Moderate to severe wall thickening in the mid to distal esophagus. LIVER/GB: Contracted gallbladder. Roughly 1.6 cm hypodense lesion left hepatic lobe has peripheral en hancement suggesting probable hemangioma, incompletely characterized on this study. This can be furth er evaluated with nonemergent liver protocol CT or MRI. PANCREAS: No significant abnormality is seen. SPLEEN: No significant abnormality is seen. ADRENALS: No significant abnormality is seen. KIDNEYS: No significant abnormality is seen. BOWEL: No significant abnormality is seen. GENITAL ORGANS: Uterus is surgically absent. LYMPH NODES: No greater than 1cm abdominal or pelvic lymph nodes are appreciated. OSSEOUS STRUCTURES: Scoliotic curvature. Multilevel vacuum disc phenomena and disc space narrowing in the lumbar spine. OTHER: No significant additional abnormality is seen. IMPRESSION: 1. No aortic dissection. No acute findings clearly seen to account for patient's symptoms. 2. Wall thickening in the mid to distal esophagus. Esophagitis needs to be considered. Correlate clin ically. Consider direct visualization if felt clinically warranted. Other incidental findings noted a s detailed above.
[2023-11-19] MEDS ORDERED: ASPIRIN 325 MG TAB PO STA (11:21)
[2023-11-19] MEDS ORDERED: NALOXONE 0.4 MG/ML 1 ML VIAL IV PRN (11:45)
[2023-11-19] MEDS ORDERED: ACETAMINOPHEN TAB 325 MG TAB PO PRN (11:45)
[2023-11-19] MEDS ORDERED: PANTOPRAZOLE 40 MG/10 ML VIAL IVP STA (11:45)
[2023-11-19] MEDS ORDERED: ONDANSETRON 4 MG/2 ML VIAL IVP PRN (11:45)
[2023-11-19 12:22] VITALS: BP 161/94; PULSE 78; RESP 17
--- NOTE | 2023-11-19 13:14 | P.CRDCN ---
History of Present Illness History of present illness: HISTORY OF PRESENT ILLNESS: This is a 63-year-old female with a past medical history significant for coronary artery disease with previous stenting to the proximal LAD in May 2013, hypertension, hyperlipidemia, questionable brain tumor, and former nicotine dependence. Patient has not followed with a installation & maintenance executive since 2013. We have been asked to see the patient in consultation for chest pain. Patient examined at the bedside. Patient states that she has been having chest pain on and off for the past month. She states that the discomfort can happen randomly and is not exertionally related. She denies any shortness of breath. She also reports her blood pressure has been running high with a systolic between [id number] over the past week. * EKG reveals sinus mechanism with no signs of acute ischemia * Chest xray negative for acute process. COPD changes. * Laboratory data: Troponin negative 1. * Current home cardiac medications include rosuvastatin 5 mg daily, lisinopril 10 mg daily, amlodipine 5 mg daily, metoprolol tartrate 25 mg 3 times a day, and Plavix 75 mg daily * Most recent echocardiogram obtained in October 2020 revealed ejection fraction 55%, mild MR, mild TR REVIEW OF SYSTEMS: At the time of my exam: CONSTITUTIONAL: Denies fever or chills. HEENT: Denies blurred vision, vision changes, or eye pain. Denies hemoptysis CARDIOVASCULAR: Denies chest pain. Denies orthopnea. Denies PND. Denies palpitations RESPIRATORY: Denies shortness of breath. GASTROINTESTINAL: Denies abdominal pain. Denies nausea or vomiting. HEMATOLOGIC: Denies bleeding disorders. GENITOURINARY: Denies any blood in urine. SKIN: Denies pruitis. Denies rash. PHYSICAL EXAM: VITAL SIGNS: Reviewed. GENERAL: Well-developed in no acute distress. HEENT: Head is normocephalic. Pupils are equal, round. Sclerae anicteric. Mucous membranes of the mouth are moist. Neck supple. No JVD or thyromegaly LUNGS: Respirations even and unlabored. Lungs essentially clear to auscultation bilaterally. HEART: Regular rate and rhythm. S1 and S2 heard. ABDOMEN: Soft. Nondistended. Nontender. EXTREMITIES: Normal range of motion. No clubbing or cyanosis. Peripheral pulses intact. No lower extremity edema NEUROLOGIC: Awake and alert. Oriented x 3. ASSESSMENT: Chest pain, atypical, troponins negative 1 Coronary artery disease with previous stenting of the proximal LAD, 2012 Hypertension, uncontrolled on admission Hyperlipidemia Former nicotine dependence, patient states she quit smoking 2 months ago Questionable brain tumor, per patient, unable to specify but states she has 4 different types of brain tumors PLAN: Trend troponins Resume home cardiac medications Increase amlodipine to 5 mg twice a day Continue to monitor blood pressure Obtain 2-D echo to assess cardiac structure and function Continue to monitor patient for an additional 24 hours If patient has no further episodes of chest pain, patient may be discharged home and follow-up with Dr. Klein and will plan for outpatient stress testing Further recommendations pending patient course Nurse practitioner note has been reviewed by physician. Signing provider agrees with the documented findings, assessment, and plan of care. Past Medical History Past Medical History: Coronary Artery Disease (CAD), Hyperlipidemia, Hypertension, Myocardial Infarction ([place]) Additional Past Medical History / Comment(s): incontinent of stools at times,waxy stools, ulcerative colitis, intermittent pain in between shoulder blades,hypoglycemia Last Myocardial Infarction Date:: 2011 History of Any Multi-Drug Resistant Organisms: None Reported Past Surgical History: Heart Catheterization With Stent, Hysterectomy, Tubal Ligation Additional Past Surgical History / Comment(s): heart stent x1 Past Anesthesia/Blood Transfusion Reactions: Previous Problems w/ Anesthesia Additional Past Anesthesia/Blood Transfusion Reaction / Comment(s): states "Dr had a difficult time advancing scope with prior colonoscopy,takes a long time to wake up from anesthesia",pt's mom takes a long time to wake up from anesthesia,no hx blood transfusion Date of Last Stent Placement:: 2011 Past Psychological History: No Psychological Hx Reported - Past Family History Mother Family Medical History: No Reported History Father Family Medical History: Congestive Heart Failure (CHF) Additional Family Medical History / Comment(s): emphysema Medications and Allergies Home Medications Medication Instructions Recorded Confirmed Type Clopidogrel [Plavix] 75 mg PO DAILY 04/13/14 11/19/23 History Metoprolol Tartrate [Lopressor] 25 mg PO TID 04/13/14 11/19/23 History ALPRAZolam [Xanax] 1 mg PO BID 11/19/23 11/19/23 History Cyclobenzaprine [Flexeril] 5 mg PO BID 11/19/23 11/19/23 History Fluticasone Propionate 1 spray EA NOSTRIL DAILY 11/19/23 11/19/23 History Rosuvastatin Calcium 5 mg PO DAILY 11/19/23 11/19/23 History Ubrogepant [Ubrelvy] 100 mg PO BID PRN 11/19/23 11/19/23 History amLODIPine [Norvasc] 5 mg PO DAILY 11/19/23 11/19/23 History lisinopriL [Zestril] 10 mg PO DAILY 11/19/23 11/19/23 History Allergies Allergy/AdvReac Type Severity Reaction Status Date / Time hydrocodone [From Craig] AdvReac Severe Nausea & Verified 11/19/23 10:44 Vomiting Physical Exam Vitals: Vital Signs Temp Pulse Pulse Resp BP Pulse Ox 11/19/23 12:12 97.9 F 78 17 161/94 96 11/19/23 11:09 64 16 152/101 96 11/19/23 10:05 69 17 165/97 97 11/19/23 09:29 97.9 F 66 17 162/106 96 11/19/23 08:15 84 11/19/23 08:00 97.7 F 89 18 165/93 97 Intake and Output 11/18/23 11/19/23 11/19/23 22:59 06:59 14:59 Other: Weight 68.039 kg Results 11/19/23 08:10 11/19/23 08:10 Cardiac Enzymes 11/19/23 11/19/23 Range/Units 08:10 08:10 AST 36 (14-36) U/L Troponin I <0.012 (0.000-0.034) ng/mL Coagulation 11/19/23 Range/Units 08:10 PT 9.5 L (10.0-12.5) sec APTT 21.3 L (22.0-30.0) sec CBC 11/19/23 Range/Units 08:10 WBC 9.1 (3.8-10.6) k/uL RBC 4.13 (3.80-5.40) m/uL Hgb 12.3 (11.4-16.0) gm/dL Hct 37.9 (34.0-46.0) % Plt Count 193 (150-450) k/uL Comprehensive Metabolic Panel 11/19/23 Range/Units 08:10 Sodium 142 (137-145) mmol/L Potassium 3.7 (3.5-5.1) mmol/L Chloride 108 H (98-107) mmol/L Carbon Dioxide 23 (22-30) mmol/L BUN 21 H (7-17) mg/dL Creatinine 0.59 (0.52-1.04) mg/dL Glucose 127 H (74-99) mg/dL Calcium 8.8 (8.4-10.2) mg/dL AST 36 (14-36) U/L ALT 80 H (4-34) U/L Alkaline Phosphatase 100 (38-126) U/L Total Protein 6.4 (6.3-8.2) g/dL Albumin 3.8 (3.5-5.0) g/dL Current Medications Generic Name Dose Route Start Last Admin Trade Name Freq PRN Reason Stop Dose Admin Acetaminophen 650 mg 11/19/23 11:45 Acetaminophen Tab 325 Mg Tab PO Q6HR PRN Mild Pain or Fever > 100.5 Amlodipine Besylate 5 mg 11/19/23 21:00 Amlodipine 5 Mg Tab PO BID [facility] Atorvastatin Calcium 10 mg 11/20/23 09:00 Atorvastatin 10 Mg Tab PO DAILY [facility] Lisinopril 10 mg 11/20/23 09:00 Lisinopril 10 Mg Tab PO DAILY [facility] Metoprolol Tartrate 25 mg 11/19/23 16:00 Metoprolol Tartrate 25 Mg Tab PO TID [facility] Naloxone HCl 0.2 mg 11/19/23 11:45 Naloxone 0.4 Mg/Ml 1 Ml Vial IV Q2M PRN Opioid Reversal Ondansetron HCl 4 mg 11/19/23 11:45 Ondansetron 4 Mg/2 Ml Vial IVP Q8HR PRN Nausea And Vomiting Pantoprazole Sodium 40 mg 11/20/23 09:00 Pantoprazole 40 Mg/10 Ml Vial IV DAILY [facility] Intake and Output 11/18/23 11/19/23 11/19/23 22:59 06:59 14:59 Other: Weight 68.039 kg Patient Weight 11/20/23 06:59 Weight 68.039 kg 11/19/23 08:10 11/19/23 08:10
[2023-11-19] MEDS ORDERED: METOPROLOL TARTRATE 25 MG TAB PO SCH (16:00)
[2023-11-19] MEDS ORDERED: amLODIPine 5 MG TAB PO SCH (21:00)
[2023-11-20] MEDS ORDERED: lisinopriL 10 MG TAB PO SCH (09:00)
[2023-11-20] MEDS ORDERED: amLODIPine 5 MG TAB PO SCH (09:00)
[2023-11-20] MEDS ORDERED: CLOPIDOGREL 75 MG TAB PO SCH (09:00)
[2023-11-20] MEDS ORDERED: ATORVASTATIN 10 MG TAB PO SCH (09:00)
[2023-11-20] MEDS ORDERED: PANTOPRAZOLE 40 MG/10 ML VIAL IV SCH (09:00)
[2023-11-20] MEDS ORDERED: ASPIRIN 81 MG PO SCH (09:00)
== END 2023-11-19 13:55 | disposition home or self-care (01) ==
LOC: EC 07:49 → 6NMEDSUR 11:45
PROVIDERS: ADMIT Internal Medicine; ATTEND Internal Medicine
DX: R07.89 Other chest pain (principal); I25.10 Atherosclerotic heart disease of native coronary artery without angina pectoris; I10 Essential (primary) hypertension; E78.5 Hyperlipidemia, unspecified; I25.2 Old myocardial infarction; Z87.891 Personal history of nicotine dependence; Z95.5 Presence of coronary angioplasty implant and graft; Z79.51 Long term (current) use of inhaled steroids; Z79.02 Long term (current) use of antithrombotics/antiplatelets; Z79.899 Other long term (current) drug therapy; Z88.5 Allergy status to narcotic agent; Z82.49 Family history of ischemic heart disease and other diseases of the circulatory system
CPT/HCPCS: 96375 ×2; 96374; 99285; 36415; 93005; 80053; 83690; 83735; 84484; 85025; 85610; 85730; 71045; 71275; 74174; G0378; J2405; J1170; C9113; Q9967

== ENCOUNTER → 2024-03-31 | Outpatient (CLI) | payer MEDICARE, OTHER ==
[2024-03-31 15:14] LABS: Basophils # (A) 0.06 X 10*3/uL (0.00-0.10); Basophils % (A) 0.6 %; Eosinophils # (A) 0.06 X 10*3/uL (0.04-0.35); Eosinophils % (A) 0.6 %; HCT 42.5 % (37.2-46.3); HGB 13.4 g/dL (12.0-15.0); Lymphocytes # (A) 3.41 X 10*3/uL (0.90-5.00); MCH 29.7 pg (27.0-32.0); MCHC 31.5 g/dL (32.0-37.0); MCV 94.2 FL (80.0-97.0); Mean Platelet Volume 11.9 FL (9.5-12.2); Monocytes # (A) 0.85 X 10*3/uL (0.20-1.00); Monocytes % (A) 8.2 %; NRBC Per 100 WBC 0 X 10*3/uL (0.00-0.01); Neutrophils # (A) 5.92 X 10*3/uL (1.80-7.70); Neutrophils % (A) 57.2 %; Platelet Count 252 X 10*3/uL (140-440); RBC 4.51 X 10*6/uL (4.10-5.20); RDW 13.3 % (11.5-14.5); WBC 10.34 X 10*3/uL (4.50-10.00)
[2024-03-31 15:29] LABS: BUN/Creat Ratio 26.43 Ratio (12.00-20.00); Blood Urea Nitrogen 18.5 mg/dL (9.0-27.0); Calcium 9.5 mg/dL (8.7-10.3); Chloride 104 mmol/L (96-109); Glucose 96 mg/dL (70-110); Potassium 4.4 mmol/L (3.5-5.5); Sodium 141 mmol/L (135-145)
== END | disposition home or self-care (01) ==
LOC: LABWHC1 10:39
PROVIDERS: ATTEND Internal Medicine Interventional Cardiology
DX: I10 Essential (primary) hypertension (principal); I25.10 Atherosclerotic heart disease of native coronary artery without angina pectoris
CPT/HCPCS: 36415; 80048; 84443; 85025